=== PATIENT | female | born 1960 | race Two or more races ===

== ENCOUNTER 2020-06-25 07:04 | Outpatient (CLI) | payer OTHER | END 2020-06-25 07:14 | disposition home or self-care (01) | LOC: NUCLEAR 07:04 | PROVIDERS: ATTEND Internal Medicine Cardiovascular Disease | DX: I10 Essential (primary) hypertension (principal); E11.9 Type 2 diabetes mellitus without complications; E78.2 Mixed hyperlipidemia; I25.10 Atherosclerotic heart disease of native coronary artery without angina pectoris | CPT/HCPCS: J0153; A9500; 78452; 93017 ==

== ENCOUNTER 2024-12-19 10:57 | Outpatient (CLI) | payer OTHER | END 2024-12-19 10:58 | disposition home or self-care (01) | LOC: NUCLEAR 10:57 | DX: I73.9 Peripheral vascular disease, unspecified (principal) ==

== ENCOUNTER 2025-02-28 09:48 | Outpatient (CLI) | payer OTHER | END 2025-02-28 09:49 | disposition home or self-care (01) | LOC: NUCLEAR 09:48 | DX: I73.9 Peripheral vascular disease, unspecified (principal) ==